=== PATIENT | male | born 1955 | race Caucasian/White ===

== ENCOUNTER 2018-03-29 20:56 | Inpatient (IN) | payer SELFPAY ==
--- NOTE | 2018-03-29 21:55 | ER Document Report ---
ED Medical Screen (RME) - General Chief Complaint: ETOH Abuse Stated Complaint: ETOH Time Seen by Provider: 03/29/18 21:51 Notes: 62-year-old male, chief complaint of fall, headache, confusion. He comes by EMS , EMS told the nurse that patient was at a convenient store when he fell, he was thought to be intoxicated and the ambulance was called by the store. Patient states she has not been drinking anything today, he states he drove to the store and then fell and hit his head. He states he feels fine except earlier he was having some chest discomfort and felt like he was having trouble walking in a straight line. He states right now he has a bad headache. He states his only medication at home is Synthroid, he smokes, he denies any medical history otherwise. He states he has done this before where he had fallen and he was not sure what happened. No diagnosed seizure history. He did not soil himself. TRAVEL OUTSIDE OF THE [place] IN LAST 30 DAYS: No - Related Data Allergies/Adverse Reactions: No Known Allergies Allergy (Verified 03/29/18 20:57) Physical Exam - Vital signs Vitals: Temp Pulse Resp BP Pulse Ox 99.2 F 98 14 150/88 H 93 03/29/18 21:02 03/29/18 21:02 03/29/18 21:02 03/29/18 21:02 03/29/18 21:02 - Respiratory Respiratory status: No respiratory distress Breath sounds: Normal. No: Decreased air movement, Wheezing - Neurological Orientation: Disoriented to time, Disoriented to events. No: Disoriented to person, Disoriented to place Rian Coma Scale Verbal: Oriented Rian Coma Scale Motor: Obeys Commands Speech: Normal Cranial nerves: Normal Cerebellar coordination: Normal Motor strength normal: LUE, RUE, LLE, RLE Additional motor exam normals: Equal lamination spinner Course - Vital Signs Vital signs: Temp Pulse Resp BP Pulse Ox 99.2 F 98 14 150/88 H 93 03/29/18 21:02 03/29/18 21:02 03/29/18 21:02 03/29/18 21:02 03/29/18 21:02
[2018-03-29 22:09] LABS: ABSOLUTE LYMPHOCYTES (AUTO) 0.7 10^3/uL (0.5-4.7); ABSOLUTE MONOCYTES (AUTO) 0.5 10^3/uL (0.1-1.4); ABSOLUTE NEUT (AUTO) 5.5 10^3/uL (1.7-8.2); BASOPHILS % (AUTO) 0.6 % (0-2); EOSINOPHILS % (AUTO) 0.3 % (0-6); HEMATOCRIT 42.4 % (37.9-51.0); HEMOGLOBIN 15.1 g/dL (13.5-17.0); LYMPHOCYTES % (AUTO) 10.1 % (13-45); MEAN CORPUSCULAR HEMOGLOBIN 40.7 pg (27.0-33.4); MEAN CORPUSCULAR HGB CONC 35.7 g/dL (32.0-36.0); MONOCYTES % (AUTO) 7.8 % (3-13); RED BLOOD COUNT 3.71 10^6/uL (4.35-5.55); RED CELL DISTRIBUTION WIDTH 13.5 % (11.5-14.0); SEGMENTED NEUTROPHILS % (AUTO) 81.2 % (42-78); TOTAL CELLS COUNTED % (AUTO) 100 %; WHITE BLOOD COUNT 6.7 10^3/uL (4.0-10.5)
[2018-03-29 22:19] LABS: PLATELET COUNT 65 10^3/uL (150-450)
[2018-03-29 22:20] LABS: ALANINE AMINOTRANSFERASE 64 U/L (21-72); ALBUMIN 4.5 g/dL (3.5-5.0); ALKALINE PHOSPHATASE 93 U/L (38-126); ANION GAP 12 (5-19); ASPARTATE AMINO TRANSFERASE 150 U/L (17-59); BILIRUBIN,DIRECT 0.5 mg/dL (0.0-0.4); BILIRUBIN,TOTAL 1.8 mg/dL (0.2-1.3); BLOOD UREA NITROGEN 7 mg/dL (7-20); CALCIUM 8.8 mg/dL (8.4-10.2); CARBON DIOXIDE 29 mmol/L (22-30); CHLORIDE 95 mmol/L (98-107); CREATINE KINASE 858 U/L (55-170); GLUCOSE 114 mg/dL (75-110); POTASSIUM 3.1 mmol/L (3.6-5.0); TOTAL PROTEIN 7.2 g/dL (6.3-8.2)
[2018-03-29 22:25] LABS: ALCOHOL < 10 mg/dL (NONE DETECTED)
--- NOTE | 2018-03-29 22:29 | RADIOLOGY REPORT (SQ) ---
EXAM DESCRIPTION: CHEST SINGLE VIEW COMPLETED DATE/TIME: 03/29/2018 10:17 pm REASON FOR STUDY: chest pain COMPARISON: None. EXAM PARAMETERS: NUMBER OF VIEWS: One view. TECHNIQUE: Single frontal radiographic view of the chest acquired. RADIATION DOSE: NA LIMITATIONS: None. FINDINGS: LUNGS AND PLEURA: No opacities, masses or pneumothorax. No pleural effusion. MEDIASTINUM AND HILAR STRUCTURES: No masses. Contour normal. HEART AND VASCULAR STRUCTURES: Heart normal in size. Normal vasculature. BONES: No acute findings. HARDWARE: None in the chest. OTHER: No other significant finding. IMPRESSION: NO ACUTE RADIOGRAPHIC FINDING IN THE CHEST. TECHNICAL DOCUMENTATION: JOB ID: [id number] [employer]- All Rights Reserved Reading location - IP/workstation name: [email or web address]
[2018-03-29 22:33] LABS: MEAN CORPUSCULAR VOLUME 114 fl (80-97); OVALOCYTES SLIGHT; PLATELET COMMENT DECREASED; PLATELET LARGE PRESENT; POIKILOCYTOSIS SLIGHT; POLYCHROMASIA SLIGHT
--- NOTE | 2018-03-29 22:45 | RADIOLOGY REPORT (SQ) ---
EXAM DESCRIPTION: CT head without IV contrast CLINICAL HISTORY: 62-year-old male. Fall, syncope, confusion COMPARISON: None Available. Technique: Contiguous axial images of the brain were obtained without the administration of intravenous contrast. This exam was performed according to our departmental dose-optimization program which includes use of Automated Exposure Control, adjustment of the mA and/or kV according to patient size and/or use of iterative reconstruction technique. Findings: Brain:No acute intracranial hemorrhage. No territorial infarct. No mass effect. Ventricles: Within normal limits in size. Bones: No acute osseous abnormality. Incidentally noted, nonunion of the posterior C1 arch. Leftward deviation of the nasal septum. Paranasal sinuses: Minimal mucosal thickening of the right maxillary sinus. Mastoid air cells: Aerated. Soft tissues: No acute abnormality. Lab Head view shows no additional findings. IMPRESSION: No acute intracranial abnormalities.
[2018-03-29] MEDS ORDERED: NORMAL SALINE 1000 ML 1,000 ML IV ONE (23:50)
[2018-03-29] MEDS ORDERED: DIAZEPAM INJ 10 MG/2 ML DISP.SYRIN IV ONE (23:50)
[2018-03-29] MEDS ORDERED: THIAMINE HCL 100 MG, FOLIC ACID 1 MG in NORMAL SALINE 250 ML IV ONE (23:50)
--- NOTE | 2018-03-29 23:54 | ER Document Report ---
ED General - General Chief Complaint: ETOH Abuse Stated Complaint: ETOH Time Seen by Provider: 03/29/18 21:51 Notes: Patient is a 62-year-old male with past medical history of hypothyroidism and he denies any additional medical history who presents by EMS after apparently falling while in a convenience store. EMS was contacted out of concern that the patient was intoxicated. The patient denies any drug or alcohol use today. He states that for the past 3 weeks he has had periods where he feels quite imbalanced and dizzy. He states that it is worse in the morning but improves throughout the day. He states it has been much worse over the past 2 days. He denies any focal weakness or numbness. He denies any chest pain, shortness of breath, headache, neck pain and denies feeling confused. He states he feels fine and would like to go home. He currently lives with his brother and recently moved to the area from [place] per his report. The patient does admit to alcohol use but is quite evasive about the quantity and regularity of his use. He denies any additional drug use. TRAVEL OUTSIDE OF THE [place] IN LAST 30 DAYS: No - Related Data Allergies/Adverse Reactions: No Known Allergies Allergy (Verified 03/29/18 20:57) Past Medical History - General Information source: Patient - Social History Smoking Status: Current Every Day Smoker Frequency of alcohol use: Heavy Drug Abuse: None Lives with: Family Family History: Reviewed & Not Pertinent Review of Systems - Review of Systems Notes: Constitutional: Negative for fever. HENT: Negative for sore throat. Eyes: Negative for visual changes. Cardiovascular: Negative for chest pain. Respiratory: Negative for shortness of breath. Gastrointestinal: Negative for abdominal pain, vomiting or diarrhea. Genitourinary: Negative for dysuria. Musculoskeletal: Negative for back pain. Skin: Negative for rash. Neurological: Negative for headaches, weakness or numbness. Positive for imbalance. 10 point ROS negative except as marked above and in HPI. Physical Exam - Vital signs Vitals: Temp Pulse Resp BP Pulse Ox 99.2 F 98 14 150/88 H 93 03/29/18 21:02 03/29/18 21:02 03/29/18 21:02 03/29/18 21:02 03/29/18 21:02 Interpretation: Hypertensive, Hypoxic Notes: PHYSICAL EXAMINATION: GENERAL: Somewhat disheveled, in no acute distress HEAD: Atraumatic, normocephalic. EYES: Pupils equal round and reactive to light, extraocular movements intact, sclera anicteric, conjunctiva are normal. ENT: nares patent, oropharynx clear without exudates. Moderately dry mucous membranes. NECK: Normal range of motion, supple without lymphadenopathy LUNGS: Breath sounds clear to auscultation bilaterally and equal. No wheezes rales or rhonchi. HEART: Regular rate and rhythm without murmurs ABDOMEN: Soft, nontender, normoactive bowel sounds. No guarding, no rebound. No masses appreciated. EXTREMITIES: Normal range of motion, no pitting or edema. No cyanosis. NEUROLOGICAL: Face symmetric. Tongue protrudes midline. Extraocular motions intact. Pupils are 2 mm and equally reactive. Normal speech, normal gait. 5 out of 5 strength in both the distal and proximal upper and lower extremities bilaterally. Sensation is grossly intact throughout. Finger to nose testing normal. Pronator drift normal. PSYCH: Alert, oriented to person, state but not city. Does not recall where he was prior to coming to the hospital today. SKIN: Warm, Dry, normal turgor, no rashes or lesions noted. Course - Re-evaluation Re-evalutation: 03/29/18 23:52 Patient presents in quite an unusual manner complaining of dizziness and vertigo , initially reported as being intoxicated by EMS although his alcohol level is negative. Patient's neurologic exam is overall completely unremarkable. Finger to nose and heel to [place] normal. He is able to ambulate without any ataxia. Able to walk on heels and toes without difficulty. He has no focal neurologic deficits on examination. His demeanor and orientation is slightly unusual. The patient is alert and oriented to person, state, month, year and current president [facility] but does not know what city we are in and cannot recall what convenience store he was in prior to being brought to the hospital. He states the only medication that he does use of levothyroxine. He does admit to daily alcohol use but denies to me chronic dependence or history of alcohol withdrawal in the past. However, the patient's laboratories and overall clinical presentation seems to be most worrisome for acute alcohol withdrawal versus Wernicke's encephalopathy. The patient is noted to be hypertensive at time of triage and is tachycardic at time of my evaluation. His MCV is quite elevated at 112 suggestive of a macrocytic anemia likely from a folate or B12 deficiency from chronic alcohol use. His platelets are also quite low again suggestive of chronic alcohol dependency. Will therefore provide a dose of IV thiamine and folate as well as IV fluids and a dose of IV diazepam. Will then reassess the patient. 03/30/18 02:29 Patient is symptomatically improved after receiving thiamine and folate as well as IV diazepam. He still continues to have some degree of confusion and I believe at this point his most consistent diagnosis would be Wernicke's encephalopathy. I have discussed with the hospitalist for admission who is excepted. - Vital Signs Vital signs: Temp Pulse Resp BP Pulse Ox 99.2 F 98 14 150/88 H 93 03/29/18 21:02 03/29/18 21:02 03/29/18 21:02 03/29/18 21:02 03/29/18 21:02 - Laboratory Result Diagrams: 03/29/18 21:54 03/29/18 21:54 Laboratory results interpreted by me: 03/29/18 03/29/18 03/29/18 21:54 21:54 21:54 RBC 3.71 L MCV 114 H MCH 40.7 H Plt Count 65 L Seg Neutrophils % 81.2 H Lymphocytes % 10.1 L Sodium 136.0 L Potassium 3.1 L Chloride 95 L Glucose 114 H Magnesium Total Bilirubin 1.8 H Direct Bilirubin 0.5 H AST 150 H Creatine Kinase 858 H Salicylates < 1.0 L 03/29/18 21:54 RBC MCV MCH Plt Count Seg Neutrophils % Lymphocytes % Sodium Potassium Chloride Glucose Magnesium 1.5 L Total Bilirubin Direct Bilirubin AST Creatine Kinase Salicylates - Diagnostic Test Radiology reviewed: Image reviewed, Reports reviewed Radiology results interpreted by me: 03/30/18 00:41 CT head: No acute intracranial bleeds Chest x-ray: No acute infiltrate Discharge - Discharge Clinical Impression: Wernickes encephalopathy, Gait instability Alcohol withdrawal Qualifiers: Complication of substance-induced condition: with delirium Qualified Code(s): F10.231 - Alcohol dependence with withdrawal delirium Condition: Fair Disposition: ADMITTED INPATIENT Admitting Provider: Hospitalist Unit Admitted: Telemetry
[2018-03-30] MEDS ORDERED: THIAMINE HCL INJ 200 MG/2 ML VIAL IV PRN (00:14)
[2018-03-30] MEDS ORDERED: FOLIC ACID INJ 5 MG/1 ML 10 ML VIAL IV PRN (00:15)
[2018-03-30 01:24] LABS: SALICYLATE < 1.0 mg/dL (2.0-20.0)
[2018-03-30] MEDS ORDERED: DIAZEPAM 5 MG TABLET PO SCH (02:30)
[2018-03-30] MEDS ORDERED: LORAZEPAM INJ 2 MG/1 ML VIAL IV PRN (02:30)
[2018-03-30] MEDS ORDERED: MAG HYDROX/AL HYDROX/SIMETH SUSP 30 ML UDCUP PO PRN (02:30)
[2018-03-30] MEDS ORDERED: IPRATROPIUM/ALBUTEROL 0.5-2.5 MG/3 ML AMPUL NEB PRN (02:30)
[2018-03-30 03:10] LABS: PHOSPHORUS 3.4 mg/dL (2.5-4.5)
[2018-03-30 03:58] LABS: APPEARANCE,URINE CLEAR; BILIRUBIN,URINE NEGATIVE (NEGATIVE); COLOR,URINE YELLOW; GLUCOSE, URINE NEGATIVE (NEGATIVE); KETONES,URINE TRACE mg/dL (NEGATIVE); LEUKOCYTE ESTERASE,URINE NEGATIVE (NEGATIVE); NITRITE,URINE NEGATIVE (NEGATIVE); PROTEIN,URINE NEGATIVE (NEGATIVE); URINE SPECIFIC GRAVITY 1.006
--- NOTE | 2018-03-30 05:05 | PDOC H&P ---
History of Present Illness Admission Date/PCP: 03/30/18 02:36 Patient complains of: Fall History of Present Illness: ARGENIS CHAN JR is a 62 year old male with a past medical history of hypothyroidism and alcohol dependence. Patient presents after falling in a convenience store with inability to stand up. Patient was thought to be intoxicated but denied recent drug or alcohol use. Patient complains of several days of imbalance. Denies confusion, headache, blurred vision, nausea or vomiting. He admits to regular alcohol consumption but refuses to elaborate. He denies recent medication changes. In the emergency room he is found to have ataxia and macrocytosis with an MCV of 119. He started on thiamine and referred to the hospitalist for admission. 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 Past Medical History Pulmonary Medical History: Reports: Chronic Obstructive Pulmonary Disease (COPD) Psychiatric Medical History: Reports: Alcohol Dependency, Tobacco Dependency Social History Information Source: Patient Lives with: Family Smoking Status: Current Every Day Smoker Frequency of Alcohol Use: Heavy - Advance Directive Resuscitation Status: Full Code Family History Parental Family History Reviewed: Yes Children Family History Reviewed: Yes Sibling(s) Family History Reviewed.: Yes Medication/Allergy Allergies/Adverse Reactions: No Known Allergies Allergy (Verified 03/29/18 20:57) Review of Systems ROS unobtainable: Due to mental status Physical Exam Vital Signs: Temp Pulse Resp BP Pulse Ox 99.2 F 98 14 150/88 H 93 03/29/18 21:02 03/29/18 21:02 03/29/18 21:02 03/29/18 21:02 03/29/18 21:02 General appearance: PRESENT: disheveled, mild distress, thin. ABSENT: cooperative Head exam: PRESENT: atraumatic, normocephalic Eye exam: PRESENT: conjunctiva pink, EOMI, PERRLA Ear exam: PRESENT: normal external ear exam Mouth exam: PRESENT: moist, tongue midline Neck exam: ABSENT: carotid bruit, JVD, lymphadenopathy, thyromegaly Respiratory exam: PRESENT: clear to auscultation taryn, crackles, prolonged expiratory phas. ABSENT: rales, retraction, rhonchi, wheezes Cardiovascular exam: PRESENT: RRR. ABSENT: diastolic murmur, rubs, systolic murmur Pulses: PRESENT: normal dorsalis pedis pul Vascular exam: PRESENT: normal capillary refill GI/Abdominal exam: PRESENT: normal bowel sounds, soft. ABSENT: distended, guarding, mass, organolmegaly, rebound, tenderness Rectal exam: PRESENT: deferred Extremities exam: PRESENT: full ROM, other - Generalized atrophy. ABSENT: calf tenderness, clubbing, pedal edema Musculoskeletal exam: PRESENT: other - Generalized atrophy Neurological exam: PRESENT: alert, awake, oriented to person, oriented to place , abnormal gait, ataxia, CN II-XII grossly intact. ABSENT: motor sensory deficit Psychiatric exam: PRESENT: unusual affect Skin exam: PRESENT: dry, intact, warm. ABSENT: cyanosis, rash Results Laboratory Results: 03/30/18 03:45 Urine Color YELLOW Urine Appearance CLEAR Urine pH 7.0 Ur Specific [place] 1.006 Urine Protein NEGATIVE Urine Glucose (UA) NEGATIVE Urine Ketones TRACE H Urine Blood NEGATIVE Urine Nitrite NEGATIVE Ur Leukocyte Esterase NEGATIVE Urine WBC (Auto) 1 Urine RBC (Auto) 1 03/30/18 03:47 Creatine Kinase 702 H Impressions: Chest X-Ray 03/29/18 21:51 IMPRESSION: NO ACUTE RADIOGRAPHIC FINDING IN THE CHEST. Head CT 03/29/18 21:51 IMPRESSION: No acute intracranial abnormalities. Assessment & Plan - Diagnosis (1) Wernickes encephalopathy Is this a current diagnosis for this admission?: Yes Plan: Thiamine and folate, physical and Occupational Therapy, discharge planning consult (2) Alcohol withdrawal Qualifiers: Complication of substance-induced condition: with delirium Qualified Code(s ): F10.231 - Alcohol dependence with withdrawal delirium Is this a current diagnosis for this admission?: Yes Plan: Valium scheduled and Ativan as needed (3) Gait instability Is this a current diagnosis for this admission?: Yes Plan: Secondary to #1 (4) Hypokalemia Is this a current diagnosis for this admission?: Yes Plan: Repletion and reevaluation of chemistry (5) Hypomagnesemia Is this a current diagnosis for this admission?: Yes Plan: Repletion and reevaluation of chemistry - Time Time Spent: 50 to 70 Minutes - Inpatient Certification Medical Necessity: Need Close Monitoring Due to Risk of Patient Decompensation
[2018-03-30 05:28] LABS: URINE AMPHETAMINES SCREEN NEGATIVE; URINE BARBITURATES SCREEN NEGATIVE; URINE BENZODIAZEPINES SCREEN NEGATIVE; URINE MARIJUANA (THC) SCREEN NEGATIVE; URINE METHADONE SCREEN NEGATIVE; URINE PHENCYCLIDINE SCREEN NEGATIVE
[2018-03-30] MEDS ORDERED: HEPARIN SOD (PORCINE) 5,000 UNIT/ML 1 ML SYRINGE SUBCUT SCH (06:00)
--- NOTE | 2018-03-30 09:05 | EKG REPORT ---
SEVERITY:- NORMAL ECG - SINUS RHYTHM : Confirmed by: Bertin Julien 30-Mar-2018 09:03:53
[2018-03-30] MEDS: DOCUSATE SODIUM 100 MG CAPSULE PO SCH ×2 (09:06→17:51)
[2018-03-30] MEDS: THIAMINE HCL 100 MG, FOLIC ACID 1 MG in NORMAL SALINE 250 ML IV SCH (09:33)
[2018-03-30 14:00] LABS: PATH REVIEW PATHOLOGIST REVIEWED
--- NOTE | 2018-03-30 15:47 | Progress Note ---
Provider Note Provider Note: Mr. Zheng is 62 years old male patient presents with status post fall while shopping at the grocery store. Patient has underlying alcohol abuse. And his initial blood work shows electrolyte imbalance including hypokalemia and hypomagnesemia. They have been repleted. And will follow his basic metabolic panel. Accept this patient and assume the role of primary attending.
[2018-03-30] MEDS: DIAZEPAM 5 MG TABLET PO SCH (17:51)
[2018-03-31] MEDS: DIAZEPAM 5 MG TABLET PO SCH ×2 (05:24→21:58)
[2018-03-31 05:53] LABS: ABSOLUTE EOSINOPHILS # (AUTO) 0.1 10^3/uL (0.0-0.6); ABSOLUTE LYMPHOCYTES (AUTO) 1.2 10^3/uL (0.5-4.7); ABSOLUTE MONOCYTES (AUTO) 0.4 10^3/uL (0.1-1.4); ABSOLUTE NEUT (AUTO) 2.7 10^3/uL (1.7-8.2); BASOPHILS % (AUTO) 0.6 % (0-2); EOSINOPHILS % (AUTO) 1.8 % (0-6); HEMATOCRIT 38.9 % (37.9-51.0); HEMOGLOBIN 13.6 g/dL (13.5-17.0); LYMPHOCYTES % (AUTO) 26.3 % (13-45); MEAN CORPUSCULAR HEMOGLOBIN 40.4 pg (27.0-33.4); MEAN CORPUSCULAR HGB CONC 34.9 g/dL (32.0-36.0); MEAN CORPUSCULAR VOLUME 116 fl (80-97); MONOCYTES % (AUTO) 9.5 % (3-13); RED BLOOD COUNT 3.36 10^6/uL (4.35-5.55); RED CELL DISTRIBUTION WIDTH 13.5 % (11.5-14.0); SEGMENTED NEUTROPHILS % (AUTO) 61.8 % (42-78); TOTAL CELLS COUNTED % (AUTO) 100 %; WHITE BLOOD COUNT 4.4 10^3/uL (4.0-10.5)
[2018-03-31 05:56] LABS: PLATELET COUNT 49 10^3/uL (150-450)
[2018-03-31 06:10] LABS: ALANINE AMINOTRANSFERASE 47 U/L (21-72); ALBUMIN 3.2 g/dL (3.5-5.0); ALKALINE PHOSPHATASE 61 U/L (38-126); ANION GAP 9 (5-19); ASPARTATE AMINO TRANSFERASE 81 U/L (17-59); BILIRUBIN,DIRECT 0.2 mg/dL (0.0-0.4); BILIRUBIN,TOTAL 1.2 mg/dL (0.2-1.3); BLOOD UREA NITROGEN 15 mg/dL (7-20); CALCIUM 8.5 mg/dL (8.4-10.2); CARBON DIOXIDE 27 mmol/L (22-30); CHLORIDE 104 mmol/L (98-107); GLUCOSE 83 mg/dL (75-110); SODIUM 139.9 mmol/L (137-145); TOTAL PROTEIN 5.6 g/dL (6.3-8.2)
[2018-03-31 06:14] LABS: TOXIC GRANULATION SLIGHT
[2018-03-31 06:15] LABS: ANISOCYTOSIS SLIGHT; OVALOCYTES SLIGHT; PLATELET COMMENT DECREASED
[2018-03-31 06:17] LABS: POTASSIUM 2.9 mmol/L (3.6-5.0)
[2018-03-31] MEDS ORDERED: POTASSIUM CHLORIDE 20 MEQ/50 ML RTU IV SCH (06:30)
[2018-03-31] MEDS ORDERED: POTASSIUM CHLORIDE 10 MEQ TABLET.SA PO ONE (07:00)
[2018-03-31] MEDS: POTASSIUM CHLORIDE 20 MEQ/50 ML RTU IV SCH ×2 (11:23→15:51)
[2018-03-31] MEDS: DOCUSATE SODIUM 100 MG CAPSULE PO SCH ×2 (11:23→18:15)
[2018-03-31] MEDS: THIAMINE HCL 100 MG, FOLIC ACID 1 MG in NORMAL SALINE 250 ML IV SCH (11:23)
--- NOTE | 2018-03-31 14:07 | PDOC PROGRESS REPORT ---
Subjective Progress Note for:: 03/31/18 Subjective:: This is a 62 years old male patient admitted after he sustained accidental fall. At the time of presentation patient was found to be confused and his labs were deranged. Currently patient is awake alert oriented to time place and person. He is less confused and less agitated. Reason For Visit: ENCEPHALOPATHY ATAXIA Physical Exam Vital Signs: Temp Pulse Resp BP Pulse Ox 100.4 F 64 14 117/67 94 03/31/18 01:00 03/31/18 12:50 03/31/18 12:50 03/31/18 01:00 03/31/18 12:50 Intake & Output 03/30/18 03/31/18 04/01/18 06:59 06:59 06:59 Intake Total 686 Balance 686 Weight 61.3 kg Results Laboratory Results: 03/31/18 05:35 03/31/18 05:35 03/31/18 03/31/18 03/31/18 05:35 05:35 05:35 WBC 4.4 RBC 3.36 L Hgb 13.6 Hct 38.9 MCV 116 H MCH 40.4 H MCHC 34.9 RDW 13.5 Plt Count 49 L Seg Neutrophils % 61.8 Lymphocytes % 26.3 Monocytes % 9.5 Eosinophils % 1.8 Basophils % 0.6 Absolute Neutrophils 2.7 Absolute Lymphocytes 1.2 Absolute Monocytes 0.4 Absolute Eosinophils 0.1 Absolute Basophils 0.0 Sodium 139.9 Potassium 2.9 L* Chloride 104 Carbon Dioxide 27 Anion Gap 9 BUN 15 Creatinine 0.77 Est GFR ( Amer) > 60 Est GFR (Non-Af Amer) > 60 Glucose 83 Calcium 8.5 Magnesium 2.0 Total Bilirubin 1.2 AST 81 H ALT 47 Alkaline Phosphatase 61 Total Protein 5.6 L Albumin 3.2 L 03/30/18 03/30/18 03/30/18 03:47 10:43 16:15 Creatine Kinase 702 H 471 H 348 H Impressions: Chest X-Ray 03/29/18 21:51 IMPRESSION: NO ACUTE RADIOGRAPHIC FINDING IN THE CHEST. Head CT 03/29/18 21:51 IMPRESSION: No acute intracranial abnormalities. Assessment & Plan - Diagnosis (1) Altered mental status Qualifiers: Altered mental status type: disorientation Qualified Code(s): R41.0 - Disorientation, unspecified Is this a current diagnosis for this admission?: Yes Plan: Currently patient is at his baseline. (2) Hypothyroidism Qualifiers: Hypothyroidism type: acquired Qualified Code(s): E03.9 - Hypothyroidism, unspecified Is this a current diagnosis for this admission?: Yes Plan: Continue home Synthroid (3) Hypokalemia Is this a current diagnosis for this admission?: Yes Plan: This morning his potassium is 2.9 which is repleted. BMP in a.m. (4) Hypomagnesemia Is this a current diagnosis for this admission?: Yes Plan: Resolved - Time Time Spent with patient: 25-34 minutes
--- NOTE | 2018-03-31 16:28 | Physician Advisory Note ---
Physician Advisor ProgressNote .: Pursuant to the plan for [facility], I have reviewed the medical record for this patient. Physician Advisor Statement: Please consider documenting, if you agree: 1. Most likely cause of AMS: WErnicke's encephalopathy? EtOH w/d delirium? Delirium due to metabolic encephalopathy due to [electrolyte disturbances, dehyd, ...] - or other issue as below? 2. "Acute hyponatremia, mild, suspect due to " (EtOH? dehydration? ...) Thanks! CK Specifc types of altered mental status (AMS): A. Metabolic Encephalopathy due to = AMS due to acute or chronic medical disease state, such as systemic metabolic or intracranial process that is usually reversible when the underlying cause is corrected. - Causes include fever, infection, dehydration, acidosis, sepsis, hypoxia, electrolyte imbalance, B. Toxic Encephalopathy due to =AMS due to drug, poison, or toxin. Usually reversible. C. Acute Delirium due to =nonspecific disorientation/behavioral problem with a cause that can be psychiatric, encephalopathic, or intracranial. May show confusion, disorientation, agitation, inattention, . *If documentation does not specify the underlying cause of delirium, the ICD-10 coding classification attributes it to a psychiatric origin (such as schizophrenia, [place], or rapid progression of dementia), with a correspondingly lower severity of illness, than if there is encephalopathy. -Cause examples: due to Acute Metabolic Encephalopathy, due to due to dementia with sundowning due to , superimposed on dementia, evidenced by (which is different than baseline, which is )
[2018-04-01 05:16] LABS: ANION GAP 6 (5-19); BLOOD UREA NITROGEN 14 mg/dL (7-20); CARBON DIOXIDE 29 mmol/L (22-30); CHLORIDE 106 mmol/L (98-107); GLUCOSE 88 mg/dL (75-110); SODIUM 141.4 mmol/L (137-145)
[2018-04-01] MEDS ORDERED: LEVOTHYROXINE SODIUM 0.1 MG TABLET PO SCH (06:00)
[2018-04-01] MEDS ORDERED: THIAMINE HCL 100 MG TABLET PO SCH (10:00)
[2018-04-01] MEDS ORDERED: FOLIC ACID 1 MG TABLET PO SCH (10:00)
[2018-04-01] MEDS: DIAZEPAM 5 MG TABLET PO SCH (11:19)
[2018-04-01] MEDS: DOCUSATE SODIUM 100 MG CAPSULE PO SCH (12:46)
[2018-04-01 14:15] VITALS: BP 121/63
--- NOTE | 2018-04-01 19:59 | DISCHARGE SUMMARY E ---
Discharge Summary NAME: ARGENIS CHAN : 1955 AGE: 62Y ADMITTED: 03/30/2018 DISCHARGED: 04/01/2018 CODE STATUS: Full code. PRIMARY CARE PROVIDER: Dr. Smith in [place]. DISCHARGE DIAGNOSES: 1. Wernicke's encephalopathy. 2. Alcohol dependency continuous. 3. Electrolyte derangement secondary to the above which is resolved. 4. Hypothyroidism. 5. Thrombocytopenia secondary to alcoholism. 6. Tobacco dependency. DISCHARGE MEDICATIONS: 1. Folic acid 1 mg p.o. daily, 30 tablets with zero refills. 2. Levothyroxine 0.1 mg p.o. daily. 3. Thiamine 100 mg p.o. daily, 30 tablets with zero refills. 4. Folding walker, 1 as directed. ACTIVITY: As tolerated. DIET: As tolerated. Avoid alcohol. CONDITION: Good. DIAGNOSTICS: Lab values are as follows, hematology obtained on 03/31/2018; WBCs are 4.4, hemoglobin is 13.6, hematocrit is 38.9, MCV is 116, platelet count is 65,000. Chemistry obtained on 04/01/2018; sodium is 141, potassium is 4.0, chloride 106, carbon dioxide 29, BUN 14, creatinine 0.3, glucose 88, calcium is 9.0, phosphorus is 3.4, magnesium 2.0, bilirubin is 1.2, AST 81, ALT is 47, alk-phos 61. CK 348, troponin is 0.033. Total protein 5.6, albumin 3.2. TSH is 30.7, T4 is 0.94. Urinalysis obtained on 03/30/2018; color yellow, appearance clear, pH 7.0, specific gravity is 1.006, protein negative, glucose negative, ketones trace, occult blood negative, nitrite negative, bilirubin negative, urobilinogen is 3.0, leukocyte esterase is negative, WBC is 1, RBC is 1, mucus rare, ascorbic acid is negative. Toxicology obtained on 03/30/2018; opiates are negative. Chest x-ray obtained on 03/29/2018 reveals no acute radiographic finding of the chest. Head CT obtained on 03/29/2018 reveals no acute intracranial abnormalities. EKG obtained on 03/29/2018 reveals sinus rhythm. PHYSICAL EXAMINATION: GENERAL: On examination the patient is a well-developed, reasonably nourished 62-year-old male who is awake, alert, and oriented to person, place, time, and situation. He is verbal, conversational, but slightly delayed. Does not appear to be distressed. VITAL SIGNS: Temperature is 98.6, pulse 63, respirations 14, blood pressure is 112/64, oxygen saturation is 100% on room air. SKIN: Warm and dry. No rash. He is not diaphoretic. HEENT: Pupils equal, round, and reactive to light and accommodation. Conjunctivae pink. There is no evidence of JVP. CARDIOVASCULAR SYSTEM: Heart is regular. There is no murmur or rub. CHEST: Clear, symmetrical, unlabored. ABDOMEN: Soft, nontender, nondistended. BACK: No CVA tenderness, sacral edema. EXTREMITIES: No clubbing, cyanosis, or edema. PSYCHIATRIC: Appropriate affect, pleasant mood. HISTORY OF PRESENT ILLNESS: The patient is a 62-year-old male with a past medical history of hypothyroidism and alcohol dependency. The patient presented to the emergency department after sustaining a fall. Apparently the patient was in a convenience store and was unable to stand up. The patient was initially thought to be intoxicated, but denied current alcohol use. The patient stated that he has had imbalance for a couple of days after having a long drinking binge. The patient denied any confusion, headaches, blurred vision. No nausea or vomiting. The patient's MCV was found to be 119. The patient was found to be ataxic. He was started on banana bag in the emergency department and the patient's symptoms were consistent with Wernicke's encephalopathy and the patient was referred to the hospitalist for admission and management. HOSPITAL COURSE: The patient was admitted to continuous telemetry unit. The patient was found to have a electrolyte derangement, both magnesium and potassium were supplemented. Once these were supplemented the patient's cramping stopped and ataxia did improve. The patient was seen and evaluated by physical therapy and the patient was able to ambulate 80 feet with a walker. The patient's coordination improved significantly. The patient's symptoms did improve. The patient was counseled regarding alcohol and tobacco cessation. However, the patient declines any pharmacological or rehabilitation at this time and is eager for discharge. DISCHARGE PLAN: The patient is advised to follow up with the primary care provider within 1 week for hospital follow up. TIME SPENT: On this discharge including assessment and plan, physical examination, patient education, review of records is 35 minutes. DICTATING PHYSICIAN: ARJUN BRENNAN NP [id number] PHY#: [id number] ID: [id number] JOB#: [id number] ACCT: [id number] cc:Annie HARRIS NP >
== END 2018-04-01 14:50 | disposition home or self-care (01) | DRG 641 ==
LOC: ER 20:56 → EH 03-30 02:36 → 5 03-30 10:50
PROVIDERS: ADMIT Internal Medicine; ATTEND Internal Medicine
DX: E51.2 Wernicke's encephalopathy (principal); F10.221 Alcohol dependence with intoxication delirium; F10.231 Alcohol dependence with withdrawal delirium; E87.6 Hypokalemia; E83.42 Hypomagnesemia; E03.9 Hypothyroidism, unspecified; J44.9 Chronic obstructive pulmonary disease, unspecified; R26.81 Unsteadiness on feet; D69.59 Other secondary thrombocytopenia; F17.210 Nicotine dependence, cigarettes, uncomplicated; Y90.0 Blood alcohol level of less than 20 mg/100 ml
CPT/HCPCS: 36415; 70450; 71045; 80048; 80053; 80307; 81001; 82550; 83735; 84100; 84439; 84443; 84484; 85025; 93005; 93010; 96361; 96374; 96375; 99285; J3360; J3411; J3480; J3490; J7030; J7050

== ENCOUNTER 2018-11-20 15:00 | Emergency (ER) | payer OTHER ==
[2018-11-20] MEDS ORDERED: IPRATROPIUM/ALBUTEROL 0.5-2.5 MG/3 ML AMPUL NEB ONE (15:59)
[2018-11-20] MEDS ORDERED: PREDNISONE 20 MG TABLET PO ONE (16:00)
[2018-11-20] MEDS ORDERED: ALBUTEROL SULFATE 0.083% NEB 2.5 MG/3 ML AMPUL NEB ONE (16:00)
--- NOTE | 2018-11-20 17:10 | RADIOLOGY REPORT (SQ) ---
EXAM DESCRIPTION: CHEST 2 VIEWS COMPLETED DATE/TIME: 11/20/2018 4:44 pm REASON FOR STUDY: cough, chills, eval for pneumonia COMPARISON: 03/29/2018 EXAM PARAMETERS: NUMBER OF VIEWS: two views TECHNIQUE: Digital Frontal and Lateral radiographic views of the chest acquired. RADIATION DOSE: NA LIMITATIONS: none FINDINGS: LUNGS AND PLEURA: No opacities, masses or pneumothorax. No pleural effusion. MEDIASTINUM AND HILAR STRUCTURES: No masses or contour abnormalities. HEART AND VASCULAR STRUCTURES: Heart normal size. No evidence for failure. BONES: No acute findings. HARDWARE: None in the chest. OTHER: No other significant finding. IMPRESSION: NO ACUTE RADIOGRAPHIC FINDING IN THE CHEST. TECHNICAL DOCUMENTATION: JOB ID: [id number] [employer]- All Rights Reserved Reading location - IP/workstation name: [email or web address]
--- NOTE | 2018-11-20 17:39 | ER Document Report ---
HPI - HPI Time Seen by Provider: 11/20/18 15:32 Pain Level: 1 Notes: Patient is a 63-year-old male who presents with chief complaint of cough that is productive with green sputum production. Patient reports he has been sick for at least 2 weeks. He does report recently moving in this week to a residents that has multiple cats. He states he also has an allergy to cats. He reports 2 weeks ago he saw Dr. Flowers when his symptoms first started and was started on medication however he states that his symptoms have worsened since then. Patient denies any fevers but does report chills. He reports history of COPD. He does report that his sputum has increased in amount and purulence. - RESPIRATORY Respiratory: REPORTS: Trouble Breathing, Coughing - GASTROINTESTINAL Gastrointestinal: DENIES: Abdominal Pain Past Medical History - General Information source: Patient - Social History Smoking Status: Current Every Day Smoker Chew tobacco use (# tins/day): No Frequency of alcohol use: Occasional Drug Abuse: None Family History: Reviewed & Not Pertinent Patient has suicidal ideation: No Patient has homicidal ideation: No Pulmonary Medical History: Reports: Hx COPD Renal/ Medical History: Denies: Hx Peritoneal Dialysis Vertical Provider Document - CONSTITUTIONAL Notes: PHYSICAL EXAMINATION: GENERAL: Well-appearing, well-nourished and in no acute distress. HEAD: Atraumatic, normocephalic. EYES: Pupils equal round and reactive to light, extraocular movements intact, sclera anicteric, conjunctiva are normal. ENT: Nares patent with clear rhinorrhea, oropharynx clear without exudates. Moist mucous membranes. NECK: Normal range of motion, supple without lymphadenopathy LUNGS: Rhonchi and wheezing noted bilaterally. No respiratory distress noted. HEART: Regular rate and rhythm without murmurs ABDOMEN: Soft, nontender, nondistended abdomen. No guarding, no rebound. No masses appreciated. Musculoskeletal: Normal range of motion, no pitting or edema. No cyanosis. NEUROLOGICAL: Cranial nerves grossly intact. Normal speech, normal gait. Normal sensory, motor exams PSYCH: Normal mood, normal affect. SKIN: Warm, Dry, normal turgor, no rashes or lesions noted. - INFECTION CONTROL TRAVEL OUTSIDE OF THE [place] IN LAST 30 DAYS: No Course - Re-evaluation Re-evalutation: Chest x-ray is negative for any infiltrates. Patient's lung sounds improved significantly after administration of breathing treatments. Patient was also started on prednisone. Patient will be discharged home on antibiotics as he is currently having increased amount of purulence and increased amount of sputum in the setting of COPD exacerbation. - Vital Signs Vital signs: Temp Pulse Resp BP Pulse Ox 98.4 F 104 H 20 134/113 H 95 11/20/18 15:05 11/20/18 15:05 11/20/18 15:05 11/20/18 15:05 11/20/18 15:05 Discharge - Discharge Clinical Impression: Bronchitis, COPD exacerbation Condition: Stable Disposition: HOME, SELF-CARE Additional Instructions: Bronchitis with Bronchospasm (Wheezing) You have bronchitis with bronchospasm (wheezing). Sometimes people develop wheezing with a chest cold. This occurs either because of an underlying tendency toward asthma or because the virus itself irritates the bronchial tubes. This irritation causes cough, shortness of breath, and wheezing. Emergency treatment of bronchospasm may include adrenaline shots or bronchodilator aerosol. You may feel lightheaded and have a rapid pulse for an hour or two. Rest and get plenty of fluids. At home, we'll treat you with a bronchodilator inhaler. Corticosteroids may be required for some patients. Until you recover, avoid chemical fumes, dusts, pollens, and exercising in very cold or dry air. If you smoke, stop now! Most cases of bronchitis get better without antibiotics. We prescribe antibiotics when we believe bacteria are damaging your airways, or if there's high risk the bronchitis will worsen into pneumonia. Increase your fluid intake. A cool mist humidifier may make your lungs more comfortable. An expectorant (cough medicine that loosens phlegm) can help. Repeated episodes of bronchitis and bronchospasm may result in lung damage -- for example, chronic bronchitis, recurrent pneumonias, or emphysema. If you develop a fever, increased wheezing, chest pain, or severe shortness of breath, you should contact the doctor immediately. Prescriptions: Albuterol Sulfate [Proair HFA Inhalation Aerosol 8.5 gm MDI] 2 puff IH Q4H PRN #1 mdi PRN Reason: Amoxicillin 1 tab PO TID #30 tab Prednisone [Deltasone 20 mg Tablet] 3 tab PO DAILY 4 Days #12 tablet Referrals: BAILEY FLOWERS MD [Primary Care Provider] - Follow up as needed
[2018-11-20 17:45] VITALS: BP 100/54
[2018-11-20] MEDS ORDERED: ALBUTEROL SULFATE HFA (90 MCG/PUFF) 8 GM MDI (1 MDI/ER DISP) IH ONE (17:50)
== END 2018-11-20 18:01 | disposition home or self-care (01) ==
LOC: ER 15:00
DX: J44.1 Chronic obstructive pulmonary disease with (acute) exacerbation (principal); J40 Bronchitis, not specified as acute or chronic; R05 Cough; R68.83 Chills (without fever); F17.200 Nicotine dependence, unspecified, uncomplicated; Z91.048 Other nonmedicinal substance allergy status
CPT/HCPCS: 94640 ×2; 99283; 71046; J7512; J3490; J7620

== ENCOUNTER → 2019-07-14 | Outpatient (CLI) | payer SELFPAY ==
--- NOTE | 2019-07-14 16:39 | RADIOLOGY REPORT (SQ) ---
EXAM DESCRIPTION: CHEST PA/LATERAL COMPLETED DATE/TIME: 07/14/2019 3:04 pm REASON FOR STUDY: ALLERGY, UNSPECIFIED, SUBSEQUENT ENCOUNTER COMPARISON: 11/20/2018. EXAM PARAMETERS: NUMBER OF VIEWS: two views TECHNIQUE: Digital Frontal and Lateral radiographic views of the chest acquired. RADIATION DOSE: NA LIMITATIONS: none FINDINGS: LUNGS AND PLEURA: No opacities, masses or pneumothorax. No pleural effusion. MEDIASTINUM AND HILAR STRUCTURES: No masses or contour abnormalities. HEART AND VASCULAR STRUCTURES: Heart normal size. No evidence for failure. BONES: No acute findings. HARDWARE: None in the chest. OTHER: No other significant finding. IMPRESSION: NO SIGNIFICANT RADIOGRAPHIC FINDING IN THE CHEST. TECHNICAL DOCUMENTATION: JOB ID: [id number] [employer]- All Rights Reserved Reading location - IP/workstation name: [email or web address]
== END ==
LOC: OD 14:51
PROVIDERS: ATTEND Internal Medicine
DX: T78.40XD Allergy, unspecified, subsequent encounter (principal)
CPT/HCPCS: 71046